=== PATIENT | female | born 1980 | race American Indian/Alaskan Native ===

== ENCOUNTER 2018-10-26 23:08 | Emergency (ER) | payer MEDICAID, OTHER ==
[2018-10-27] MEDS ORDERED: TYLENOL PO ONE (01:38)
[2018-10-27] MEDS ORDERED: TYLENOL ONE (01:38)
[2018-10-27] MEDS ORDERED: IBUPROFEN PO ONE ×2 (01:38)
--- NOTE | 2018-10-27 02:11 | Emergency Department Report ---
ED ENT HPI - General Chief complaint: Earache Stated complaint: EARACHE Time Seen by Provider: 10/27/18 01:36 Source: patient Mode of arrival: Ambulatory Limitations: No Limitations - History of Present Illness Initial comments: This is a 38-year-old female presents to ED complaining of left ear ache that began yesterday. Patient notes that she has been having itching to her bilateral ears for the past 2 years since she had her son. Patient states that left ear ache starting yesterday. Patient states that she had not been in the pool recently has not sustained any trauma to the ears. MD complaint: ear pain -: Gradual Location: L ear Severity: moderate Severity scale (0 -10): 6 Quality: aching, other (itching) - Related Data Previous Rx's Medication Instructions Recorded Last Taken Type Clindamycin [Clindamycin CAP] 300 mg PO Q8H #21 cap 10/27/18 Unknown Rx Ibuprofen [Motrin] 800 mg PO Q8HR #30 tablet 10/27/18 Unknown Rx Ofloxacin 0.3% [Floxin 0.3% Otic] 1 - 2 drops OT TID #1 bottle 10/27/18 Unknown Rx Allergies Allergy/AdvReac Type Severity Reaction Status Date / Time No Known Allergies Allergy Unverified 10/27/18 01:37 ED Dental HPI - General Chief complaint: Earache Stated complaint: EARACHE Time Seen by Provider: 10/27/18 01:36 Source: patient Mode of arrival: Ambulatory Limitations: No Limitations - Related Data Previous Rx's Medication Instructions Recorded Last Taken Type Clindamycin [Clindamycin CAP] 300 mg PO Q8H #21 cap 10/27/18 Unknown Rx Ibuprofen [Motrin] 800 mg PO Q8HR #30 tablet 10/27/18 Unknown Rx Ofloxacin 0.3% [Floxin 0.3% Otic] 1 - 2 drops OT TID #1 bottle 10/27/18 Unknown Rx Allergies Allergy/AdvReac Type Severity Reaction Status Date / Time No Known Allergies Allergy Unverified 10/27/18 01:37 ED Review of Systems ROS: Stated complaint: EARACHE Other details as noted in HPI Comment: All other systems reviewed and negative Constitutional: denies: chills, fever Eyes: denies: eye pain, eye discharge, vision change ENT: ear pain. denies: throat pain, hearing loss Respiratory: denies: cough, shortness of breath, wheezing Cardiovascular: denies: chest pain, palpitations Endocrine: no symptoms reported Gastrointestinal: denies: abdominal pain, nausea, diarrhea Genitourinary: denies: urgency, dysuria, discharge Musculoskeletal: denies: back pain, joint swelling, arthralgia Skin: denies: rash, lesions Neurological: denies: headache, weakness, paresthesias Psychiatric: denies: anxiety, depression Hematological/Lymphatic: denies: easy bleeding, easy bruising ED Past Medical Hx - Past Medical History Previous Medical History?: No - Surgical History Past Surgical History?: Yes Additional Surgical History: Breast duct removed, D&C Lypo X 2 - Social History Smoking Status: Current Every Day Smoker Substance Use Type: None - Medications Home Medications: Home Medications Medication Instructions Recorded Confirmed Last Taken Type Clindamycin [Clindamycin CAP] 300 mg PO Q8H #21 cap 10/27/18 Unknown Rx Ibuprofen [Motrin] 800 mg PO Q8HR #30 tablet 10/27/18 Unknown Rx Ofloxacin 0.3% [Floxin 0.3% Otic] 1 - 2 drops OT TID #1 bottle 10/27/18 Unknown Rx ED Physical Exam - General Limitations: No Limitations General appearance: alert, in no apparent distress - Head Head exam: Present: atraumatic, normocephalic - Eye Eye exam: Present: normal appearance - ENT ENT exam: Present: mucous membranes moist, TM's normal bilaterally, other (left ear, all tender to palpation, mildly swollen, nonerythematous) - Neck Neck exam: Present: normal inspection - Respiratory Respiratory exam: Present: normal lung sounds bilaterally. Absent: respiratory distress - Cardiovascular Cardiovascular Exam: Present: regular rate, normal rhythm. Absent: systolic murmur, diastolic murmur, rubs, gallop - GI/Abdominal GI/Abdominal exam: Present: soft, normal bowel sounds - Extremities Exam Extremities exam: Present: normal inspection - Back Exam Back exam: Present: normal inspection - Neurological Exam Neurological exam: Present: alert, oriented X3 - Psychiatric Psychiatric exam: Present: normal affect, normal mood - Skin Skin exam: Present: warm, dry, intact, normal color. Absent: rash Critical care attestation.: If time is entered above; I have spent that time in minutes in the direct care of this critically ill patient, excluding procedure time. ED Disposition Clinical Impression: Otitis externa Disposition: DC-01 TO HOME OR SELFCARE Is pt being admited?: No Does the pt Need Aspirin: No Condition: Stable Instructions: Otitis Externa (ED), Otitis Media (ED) Additional Instructions: Make sure to follow up with the learning operations specialist as discussed. Having given referrals for a specialist please: An appointment and follow-up as soon as you can Take all your medications as you've been prescribed. If you have any worsening symptoms or develop new symptoms please return to ED immediately. Prescriptions: Clindamycin [Clindamycin CAP] 300 mg PO Q8H #21 cap Ofloxacin 0.3% [Floxin 0.3% Otic] 1 - 2 drops OT TID #1 bottle Ibuprofen [Motrin] 800 mg PO Q8HR #30 tablet Referrals: [facility] [Provider Group] - 3-5 Days [facility] [Provider Group] - 3-5 Days [facility] [Provider Group] - 3-5 Days Forms: Work/School Release Form(ED) Time of Disposition: 02:13
[2018-10-27 05:29] VITALS: BP 153/91
== END 2018-10-27 02:45 | disposition home or self-care (01) ==
LOC: ED 23:08
DX: H60.92 Unspecified otitis externa, left ear (principal); F17.200 Nicotine dependence, unspecified, uncomplicated; Z79.899 Other long term (current) drug therapy
CPT/HCPCS: 99282